=== PATIENT | female | born 1985 ===

== ENCOUNTER 2016-10-09 09:48 | Emergency (ER) | payer MEDICAID, OTHER ==
[2016-10-09 09:52] VITALS: O2SAT 97
[2016-10-09] MEDS ORDERED: Sodium Chloride 0.9% 1,000 ML IV ONE (10:11)
[2016-10-09 10:15] LABS: RBC URINE 5 /hpf (0-3); URINE BACTERIA OCC (<OCC); URINE BILIRUBIN NEGATIVE (NEGATIVE); URINE BLOOD 1+ (NEGATIVE); URINE COLOR Yellow (YELLOW); URINE GLUCOSE (UA) NORMAL (Normal); URINE KETONE NEGATIVE (NEGATIVE); URINE LEUKOCYTE ESTERASE NEG Leu/uL (Negative); URINE PROTEIN NEGATIVE (NEGATIVE); URINE UROBILINOGEN NORMAL mg/dL (0.2-1.0); WBC URINE 3 /hpf (0-5)
[2016-10-09] MEDS ORDERED: Sodium Chloride 0.9% 1,000 ML ONE (10:17)
--- NOTE | 2016-10-09 10:24 | C.PDOC ---
History Of Present Illness 31 y/o female, presents to the ED for evaluation of lightheadedness and dizziness which has been occurring in intermittent episodes for around 1 week. Patient describes a room-spinning sensation and reports nausea. Patient states her LMP was 08/23/16 and she has taken two tests, both of which were negative. Contrary to triage, patient denies abdominal pain as well as fever, chills, headache, vision change, vomiting, diarrhea, pelvic pain or discharge. Time Seen by Provider: 10/09/16 10:03 Chief Complaint (Nursing): Dizziness/Lightheaded History Per: Patient History/Exam Limitations: no limitations Onset/Duration Of Symptoms: Intermittent Episodes (1 week) Current Symptoms Are (Timing): Still Present Activity At Onset Of Symptoms: Standing Seizure Or Post-ictal Symptoms: None Fall Associated With With Symptoms: No Additional History Per: Patient Past Medical History Reviewed: Historical Data, Nursing Documentation, Vital Signs Vital Signs: Last Vital Signs Temp 98.6 F 10/09/16 11:11 Pulse 69 10/09/16 11:11 Resp 17 10/09/16 11:11 BP 116/77 10/09/16 11:11 Pulse Ox 97 10/09/16 13:06 - Medical History PMH: No Chronic Diseases Surgical History: Appendectomy - [facility] Procedures OTHER APPENDECTOMY (11/14/04) Family History: States: Unknown Family Hx - Social History Hx Alcohol Use: No Hx Substance Use: No - Immunization History Hx Tetanus Toxoid Vaccination: No Hx Influenza Vaccination: No Hx Pneumococcal Vaccination: No Review Of Systems Except As Marked, All Systems Reviewed And Found Negative. Constitutional: Negative for: Fever, Chills Eyes: Negative for: Vision Change Gastrointestinal: Positive for: Nausea. Negative for: Vomiting, Abdominal Pain , Diarrhea Genitourinary: Negative for: Vaginal Discharge, Vaginal Bleeding, Pelvic Pain Neurological: Positive for: Dizziness, Other (+lightheadedness). Negative for: Headache Physical Exam - Physical Exam Appears: Non-toxic, No Acute Distress Skin: Normal Color, Warm, Dry Head: Atraumatic, Normacephalic Eye(s): bilateral: Normal Inspection, PERRL, EOMI, Other (no nystagmus) Ear(s): Left: Normal (no erythema) Oral Mucosa: Moist Neck: Normal ROM, Supple Chest: Symmetrical, No Deformity, No Tenderness Cardiovascular: Rhythm Regular, No Murmur Respiratory: Normal Breath Sounds, No Rales, No Rhonchi, No Wheezing Gastrointestinal/Abdominal: Soft, No Tenderness, No Guarding, No Rebound Back: Normal Inspection, No Vertebral Tenderness, No Paraspinal Tenderness Extremity: Normal ROM Neurological/Psych: Oriented x3, Normal Speech, Normal Cognition, Other (no focal deficits) Gait: Steady ED Course And Treatment - Laboratory Results Result Diagrams: 10/09/16 10:30 10/09/16 10:30 Lab Interpretation: No Acute Changes ECG: Interpreted By Me, Viewed By Me ECG Rhythm: Sinus Rhythm ECG Interpretation: No Acute Changes Interpretation Of ECG: NS at 72 bpm with normal axis and no ischemic changes. Rate From EC O2 Sat by Pulse Oximetry: 97 (on RA) Pulse Ox Interpretation: Normal Medical Decision Making Medical Decision Making: Impression: 31y/o female with lightheadedness, dizziness, and nausea Plan: * labs * EKG * Antivert PO * IV fluids * reassess and disposition Progress: Labs, EKG ordered and reviewed. Patient received Antivert PO and IV Fluids. Upon reevaluation, patient reports feeling better and was able to tolerate PO in ED. No neurological deficits. Explain test was negative. She feels comfortable going home and will be discharged with Rx. Disposition Counseled Patient/Family Regarding: Diagnosis, Need For Followup, Rx Given - Disposition Referrals: [facility] [Outside] [facility] [Outside] Disposition: HOME/ ROUTINE Disposition Time: 11:05 Condition: STABLE Additional Instructions: Your prescription Antivert was sent to [facility] Take medication 1-3 times per day as needed for dizziness Follow up with your primary medical doctor or clinic for further evaluation. Return to the emergency department at any time if symptoms persist or worsen. Prescriptions: Meclizine [Antivert] 25 mg PO Q6 #30 tab Instructions: Vertigo (ED) - POA Present On Arrival: None - Clinical Impression Clinical Impression: Dizziness - PA / TOURIST AGENT / Resident Statement MD/DO has reviewed & agrees with the documentation as recorded. - Scribe Statement The provider has reviewed the documentation as recorded by the Scribe (Elizabeth Stallings) All medical record entries made by the Scribe were at my direction and personally dictated by me. I have reviewed the chart and agree that the record accurately reflects my personal performance of the history, physical exam, medical decision making, and the department course for this patient. I have also personally directed, reviewed, and agree with the discharge instructions and disposition.
[2016-10-09 10:33] LABS: BASO # 0.1 K/uL (0.0-0.2); BASO % 0.5 % (0.0-2.0); EOS # 0.2 K/uL (0.0-0.7); EOS % 1.3 % (0.0-4.0); HEMATOCRIT 38.7 % (34.0-47.0); LYMPH # 2.7 K/uL (1.0-4.3); LYMPH % 23.8 % (20.0-40.0); MEAN CELL VOLUME 92.4 fL (81.0-99.0); MEAN CORPUSCULAR HGB CONC 32.5 g/dL (33.0-37.0); MEAN PLATELET VOLUME 9.2 fL (7.2-11.7); MONO # 0.6 K/uL (0.0-0.8); MONO % 4.9 % (0.0-10.0); RED CELL DISTRIBUTION WIDTH 13.7 % (11.5-14.5); WHITE BLOOD COUNT 11.3 K/uL (4.8-10.8)
[2016-10-09 10:41] LABS: CHLORIDE 100 mmol/L (98-107); SODIUM 138 mmol/L (132-148)
[2016-10-09 10:43] LABS: BILIRUBIN,TOTAL 0.3 mg/dL (0.2-1.3); GFR AFRICAN-AMERICAN > 60
[2016-10-09 10:44] LABS: ALB/GLOB RATIO 1.3 (1.0-2.1); ALKALINE PHOSPHATASE 74 U/L (38-126); ALT/SGPT 16 U/L (9-52); AST/SGOT 16 U/L (14-36); BLOOD UREA NITROGEN 12 mg/dL (7-17); CALCIUM 8.5 mg/dl (8.6-10.4); CARBON DIOXIDE 24 mmol/L (22-30); GLUCOSE,RANDOM 98 mg/dL (65-105); TOTAL PROTEIN 7.5 g/dL (6.3-8.3)
[2016-10-09 11:17] VITALS: BP 116/77; PULSE 69; RESP 17; TEMP 98.6
--- NOTE | 2016-10-11 11:39 | CARD ---
APPROVED REPORT EKG Measurement Heart [id number] DC 142P1 [id number] <Conclusion> Normal sinus rhythm Normal ECG
== END 2016-10-09 11:16 | disposition home or self-care (01) ==
LOC: C.ER 09:48
DX: R42 Dizziness and giddiness (principal)
CPT/HCPCS: 80053; 81001; 82948; 84703; 85025; 93005; 96360; 99285; J7040